=== PATIENT | male | born 1995 | race Two or more races ===

== ENCOUNTER 2016-08-02 15:10 | Emergency (ER) | payer OTHER ==
[~2016-08-02] VITALS: Ht 177.8 cm; Wt 79.3 kg
[~2016-08-02 15:10] MED LIST: CEFTIN250 MG PO; NASONEX17 GM BOTH NARES
[2016-08-02] MEDS ORDERED: CEPHALEXIN500 MG PO (15:37)
[2016-08-02] MEDS ORDERED: BACTRIM,SEPT1 TABLET PO (15:49)
[2016-08-02] MEDS ORDERED: KEFLEX500 MG PO (15:49)
[2016-08-02 16:08] VITALS: BP 132/67
== END 2016-08-02 16:09 | disposition home or self-care (01) ==
LOC: EME 15:10
DX: L08.9 Local infection of the skin and subcutaneous tissue, unspecified (principal); T36.1X6A Underdosing of cephalosporins and other beta-lactam antibiotics, initial encounter; Z91.128 Patient's intentional underdosing of medication regimen for other reason
CPT/HCPCS: 99281; 99284

== ENCOUNTER 2017-07-09 15:16 | Inpatient (IN) | payer OTHER ==
[~2017-07-09] VITALS: Ht 200.7 cm; Wt 72.8 kg
[~2017-07-09 15:16] MED LIST changes: +BACTRIM,SEPT1 TABLET PO; +CEPHALEXIN500 MG PO; +KEFLEX500 MG PO
[2017-07-09 21:13] LABS: INTER. NORMALIZED RATIO 1.4
[2017-07-09 21:20] LABS: ALBUMIN 4.3 g/dL (3.2-4.8)
[2017-07-09 21:21] LABS: CHLORIDE 105 mEq/L (99-109); POTASSIUM 4.3 mEq/L (3.7-5.4); SODIUM 141 mEq/L (136-147)
[2017-07-09 21:22] LABS: AMYLASE 137 IU/L (1-118)
[2017-07-09 21:23] LABS: GLUCOSE 73 mg/dL (70-99); TOTAL PROTEIN 8.3 g/dL (6.4-8.3)
[2017-07-09 21:24] LABS: HEMATOCRIT 35.9 % (38.0-50.0); MCH 18.9 PG (29.0-34.0); MCHC 33.4 G/DL (30.0-36.0); MCV 56.5 FL (86-99); PLATELET COUNT 251 K/uL (156-360); RBC DIS.WIDTH-CV 19.9 % (11.8-14.6); RBC DIS.WIDTH-SD 33.7 % (39-53); RED BLOOD COUNT 6.35 M/uL (4.00-5.50); WHITE BLOOD COUNT 5.7 K/uL (4.1-10.2)
[2017-07-09 21:25] LABS: TOTAL BILIRUBIN 13.6 mg/dL (0.0-1.0)
[2017-07-09 21:26] LABS: ALKALINE PHOSPHATASE 145 IU/L (3-129)
[2017-07-09 21:27] LABS: CREATININE 1.1 mg/dL (0.6-1.3); GFR ESTIMATE (CALCULATED) > 59 mL/min/ (58.99-99999)
[2017-07-09 21:28] LABS: UREA NITROGEN (BUN) 11 mg/dL (9-23)
[2017-07-09 21:30] LABS: CREATINE KINASE 49 IU/L (1-294); LIPASE 51 U/L (1.0-51.0); TOTAL CK 49 IU/L (1-294)
[2017-07-09 21:36] LABS: CK-MB 0.8 ng/mL (0.0-4.9); CKMB RELATIVE INDEX 1.6 (0.0-3.9)
[2017-07-09 21:42] LABS: ALT (GPT) 1510 IU/L (3-49); AST (GOT) 1928 IU/L (2-34)
[2017-07-09 22:14] LABS: APPEARANCE CLEAR ((CLEAR)); BILIRUBIN NEGATIVE; BLOOD NEGATIVE; COLOR AMBER ((YELLOW)); GLUCOSE (STRIP) NEGATIVE; KETONES NEGATIVE; LEUKOCYTES NEGATIVE; NITRITE NEGATIVE; PROTEIN (STRIP) NEGATIVE; SPECIFIC GRAVITY 1.043 (1.000-1.030)
[2017-07-09 22:48] LABS: DIRECT BILIRUBIN 9.5 mg/dL (0.0-0.3)
[2017-07-09] MEDS ORDERED: ZOFRAN4 MG PO (22:50)
[2017-07-09] MEDS ORDERED: ERGOCALCIF50000 UNIT PO (22:50)
[2017-07-09] MEDS ORDERED: PRILOSEC OTC20 MG PO (22:51)
[2017-07-09] MEDS ORDERED: PEPCID AC10 MG PO (22:51)
[2017-07-09 23:13] LABS: ACETAMINOPHEN (TYLENOL) < 10 mcg/mL (10-30); SALICYLATE < 5.0 MG/DL (15-30)
[2017-07-10 01:53] VITALS: BP 131/81
[2017-07-10 03:33] VITALS: BP 126/76
[2017-07-10 05:42] LABS: HEMOGLOBIN 9.9 G/DL (12.5-16.6); MCH 18.7 PG (29.0-34.0); MCV 56.7 FL (86-99); PLATELET COUNT 200 K/uL (156-360); RBC DIS.WIDTH-CV 18.7 % (11.8-14.6); RBC DIS.WIDTH-SD 34.5 % (39-53); RED BLOOD COUNT 5.29 M/uL (4.00-5.50); WHITE BLOOD COUNT 4.9 K/uL (4.1-10.2)
[2017-07-10 08:07] VITALS: BP 110/71
[2017-07-10 08:40] LABS: ALBUMIN 3.5 G/DL (3.2-4.8); ALKALINE PHOSPHATASE 100 IU/L (3-129); ALT (GPT) 978 IU/L (3-49); AMYLASE 81 IU/L (1-118); AST (GOT) 1217 IU/L (2-34); CHLORIDE 103 MEQ/L (99-109); GFR ESTIMATE (CALCULATED) > 59 mL/min/ (58.99-99999); GLUCOSE 107 mg/dL (70-99); LIPASE 72 U/L (1.0-51.0); POTASSIUM 3.6 MEQ/L (3.7-5.4); SODIUM 139 MEQ/L (136-147); TOTAL BILIRUBIN 11.9 MG/DL (0.0-1.0); TOTAL PROTEIN 6.2 G/DL (6.4-8.3); UREA NITROGEN (BUN) 9 mg/dL (9-23)
[2017-07-10 10:50] LABS: HEPATITIS C ANTIBODY Nonreactive
[2017-07-10 11:06] VITALS: BP 119/77
[2017-07-10 11:29] LABS: INTER. NORMALIZED RATIO 1.5
[2017-07-10 12:11] LABS: IRON 280 MCG/DL (35-150); TRANSFERRIN (TIBC) 193.8 mg/dL (215-380)
[2017-07-10 12:12] LABS: TRANSFERRIN SATUR. 144 % (20-55)
[2017-07-10 12:21] LABS: FERRITIN > 1500 NG/ML (22-322)
[2017-07-10 14:51] LABS: HEPATITIS B SURFACE ANTIGEN Nonreactive
[2017-07-10 14:52] LABS: ANTI-HEPATITIS B CORE (IGM) Nonreactive
[2017-07-10 15:27] VITALS: BP 122/77
[2017-07-10 23:15] VITALS: BP 126/66
[2017-07-11 04:50] VITALS: BP 139/79
[2017-07-11 06:25] LABS: INTER. NORMALIZED RATIO 1.6
[2017-07-11 07:00] LABS: ALBUMIN 3.3 G/DL (3.2-4.8); ALKALINE PHOSPHATASE 103 IU/L (3-129); DIRECT BILIRUBIN 7.7 mg/dL (0.0-0.3); TOTAL BILIRUBIN 12.8 MG/DL (0.0-1.0); TOTAL PROTEIN 6.2 G/DL (6.4-8.3)
[2017-07-11 07:01] LABS: ALT (GPT) 1002 IU/L (3-49)
[2017-07-11 07:02] LABS: AST (GOT) 1292 IU/L (2-34)
[2017-07-11 08:02] VITALS: BP 108/68
[2017-07-11 10:53] LABS: HEMATOCRIT 32.2 % (38.0-50.0); HEMOGLOBIN 10.7 G/DL (12.5-16.6); MCH 18.8 PG (29.0-34.0); MCHC 33.2 G/DL (30.0-36.0); MCV 56.6 FL (86-99); PLATELET COUNT 224 K/uL (156-360); RBC DIS.WIDTH-CV 19.6 % (11.8-14.6); RBC DIS.WIDTH-SD 34.6 % (39-53); RED BLOOD COUNT 5.69 M/uL (4.00-5.50); WHITE BLOOD COUNT 4.4 K/uL (4.1-10.2)
[2017-07-11 16:00] VITALS: BP 116/72
[2017-07-11 19:37] LABS: ALPHA-1-ANTITRYPSIN+ 170 mg/dL (83-199)
[2017-07-12 04:58] LABS: BASOPHIL (%) 0 % (0-1); EOSINOPHIL (%) 0 % (0-5); HEMATOCRIT 31.6 % (38.0-50.0); HEMOGLOBIN 10.7 G/DL (12.5-16.6); IMMATURE GRANULOCYTE (%) 0.3 % (0.0-0.7); LYMPHOCYTE (%) 12.2 % (15-42); LYMPHOCYTE COUNT 0.8 K/uL (1.0-2.8); MCH 18.8 PG (29.0-34.0); MCHC 33.9 G/DL (30.0-36.0); MCV 55.6 FL (86-99); MONOCYTE (%) 1.8 % (3-12); MONOCYTE COUNT 0.1 K/uL (0-0.8); NEUTROPHIL (%) 85.7 % (45-76); NEUTROPHIL COUNT 5.9 K/uL (1.8-6.4); PLATELET COUNT 228 K/uL (156-360); RBC DIS.WIDTH-CV 19.5 % (11.8-14.6); RBC DIS.WIDTH-SD 33.6 % (39-53); RED BLOOD COUNT 5.68 M/uL (4.00-5.50); WHITE BLOOD COUNT 6.8 K/uL (4.1-10.2)
[2017-07-12 04:59] LABS: ALBUMIN 3.6 g/dL (3.2-4.8); INTER. NORMALIZED RATIO 1.7
[2017-07-12 05:00] LABS: CHLORIDE 105 mEq/L (99-109); POTASSIUM 4.2 mEq/L (3.7-5.4); SODIUM 137 mEq/L (136-147)
[2017-07-12 05:02] LABS: GLUCOSE 137 mg/dL (70-99)
[2017-07-12 05:04] LABS: TOTAL BILIRUBIN 11.6 mg/dL (0.0-1.0)
[2017-07-12 05:06] LABS: CREATININE 0.9 mg/dL (0.6-1.3); GFR ESTIMATE (CALCULATED) > 59 mL/min/ (58.99-99999)
[2017-07-12 05:07] LABS: UREA NITROGEN (BUN) 10 mg/dL (9-23)
[2017-07-12 05:16] LABS: ALKALINE PHOSPHATASE 106 IU/L (3-129); ALT (GPT) 1194 IU/L (3-49); AST (GOT) 1247 IU/L (2-34); TOTAL PROTEIN 6.7 g/dL (6.4-8.3)
[2017-07-12 06:01] LABS: ERTH.SED.RATE 5 MM/HR (0-15)
[2017-07-12 07:51] VITALS: BP 123/72
[2017-07-12 10:57] LABS: ANTI-HEPATITIS A VIRUS (IGM) Nonreactive
[2017-07-12 15:36] VITALS: BP 125/79
[2017-07-12] MEDS ORDERED: ONDANSETRON4 MG/2 ML IV (18:50)
[2017-07-12] MEDS ORDERED: OXYCODONE HCL5 MG PO (18:50)
[2017-07-12] MEDS ORDERED: SOLU-MEDRO125 MG/21 IV (18:51)
[2017-07-12] MEDS ORDERED: PROTONIX IV40 MG IV (18:51)
[2017-07-13 07:58] LABS: HCV RNA (IU/mL) <15 IU/mL (<15)
[2017-07-13 08:29] LABS: HCV RNA (LOG IU/mL) <1.18 (<1.18)
[2017-07-13 18:11] LABS: MITOCHONDRIAL (M2) ANTIBODIES+ <=20.0 U (<=20.0)
== END 2017-07-12 21:21 | disposition short-term general hospital (02) | DRG 441 ==
LOC: EME 15:16 → EDOF 23:00 → 3EAST 23:00 → ENRESERV 23:24 → 3EAST 07-10 01:05
PROVIDERS: Internal Medicine; Internal Medicine Gastroenterology; Nurse Practitioner Family
DX: K72.00 Acute and subacute hepatic failure without coma (principal); K80.21 Calculus of gallbladder without cholecystitis with obstruction; K85.90 Acute pancreatitis without necrosis or infection, unspecified; K76.0 Fatty (change of) liver, not elsewhere classified; E87.6 Hypokalemia; R16.1 Splenomegaly, not elsewhere classified; D64.9 Anemia, unspecified; E55.9 Vitamin D deficiency, unspecified; I10 Essential (primary) hypertension; K21.9 Gastro-esophageal reflux disease without esophagitis; Z82.3 Family history of stroke; Z82.49 Family history of ischemic heart disease and other diseases of the circulatory system; Z83.3 Family history of diabetes mellitus
CPT/HCPCS: 36415; 74177; 74183; 76705; 80053; 80076; 81003; 82103 90; 82140; 82150; 82248; 82390; 82550; 82553; 82728; 83540; 83690; 84466; 85025; 85027; 85610; 85651; 86038; 86235; 86255 90; 86256 90; 86664; 86665; 86705; 86709; 86803; 87338; 87340; 87522 90; 99281; 99285; C9113; G0480; J2405; J2930; J7030

== ENCOUNTER 2017-08-21 08:50 | Emergency (ER) | payer OTHER ==
[~2017-08-21] VITALS: Ht 180.3 cm; Wt 72.4 kg
[~2017-08-21 08:50] MED LIST changes: +ERGOCALCIF50000 UNIT PO; +ONDANSETRON4 MG/2 ML IV; +OXYCODONE HCL5 MG PO; +PEPCID AC10 MG PO; +PRILOSEC OTC20 MG PO; +PROTONIX IV40 MG IV; +SOLU-MEDRO125 MG/21 IV; +ZOFRAN4 MG PO
[2017-08-21] MEDS ORDERED: KEFLEX500 MG PO (10:13)
[2017-08-21] MEDS ORDERED: BACTRIM,SEPT1 TABLET PO (10:13)
[2017-08-21 10:30] VITALS: BP 127/81
== END 2017-08-21 10:36 | disposition home or self-care (01) ==
LOC: EME 08:50
PROC: 0H98XZZ Drainage of Buttock Skin, External Approach (ICD-10-PCS; principal; 2017-08-21)
DX: L05.91 Pilonidal cyst without abscess (principal)
CPT/HCPCS: 87070; 87075; 87076; 87185; 87205; 99281; 99284

== ENCOUNTER 2017-08-22 14:50 | Emergency (ER) | payer OTHER ==
[~2017-08-22] VITALS: Ht 177.8 cm; Wt 72.0 kg
[2017-08-22 16:17] VITALS: BP 142/87
== END 2017-08-22 16:18 | disposition home or self-care (01) ==
LOC: EME 14:50
DX: L05.91 Pilonidal cyst without abscess (principal); Z48.01 Encounter for change or removal of surgical wound dressing
CPT/HCPCS: 99281; 99282

== ENCOUNTER 2017-08-23 13:45 | Emergency (ER) | payer OTHER ==
[~2017-08-23] VITALS: Ht 177.8 cm; Wt 72.7 kg
[2017-08-23 14:33] VITALS: BP 131/82
== END 2017-08-23 14:33 | disposition home or self-care (01) ==
LOC: EME 13:45
DX: Z48.01 Encounter for change or removal of surgical wound dressing (principal); L05.91 Pilonidal cyst without abscess
CPT/HCPCS: 99281; 99282

== ENCOUNTER 2017-08-26 18:49 | Inpatient (IN) | payer OTHER ==
[~2017-08-26] VITALS: Ht 180.3 cm; Wt 74.9 kg
[2017-08-26 19:28] LABS: ALBUMIN 3.9 g/dL (3.2-4.8)
[2017-08-26 19:29] LABS: CHLORIDE 105 mEq/L (99-109); SODIUM 140 mEq/L (136-147)
[2017-08-26 19:31] LABS: GLUCOSE 106 mg/dL (70-99); TOTAL PROTEIN 7.6 g/dL (6.4-8.3)
[2017-08-26 19:33] LABS: HEMATOCRIT 34.5 % (38.0-50.0); MCHC 31.9 G/DL (30.0-36.0); MCV 62.7 FL (86-99); NRBC (%) 0.7 /100 WBC (0-0); PLATELET COUNT 212 K/uL (156-360); RBC DIS.WIDTH-CV 20.9 % (11.8-14.6); RBC DIS.WIDTH-SD 43.1 % (39-53); TOTAL BILIRUBIN 2.9 mg/dL (0.0-1.0); WHITE BLOOD COUNT 7.5 K/uL (4.1-10.2)
[2017-08-26 19:34] LABS: ALKALINE PHOSPHATASE 106 IU/L (3-129)
[2017-08-26 19:35] LABS: CREATININE 0.8 mg/dL (0.6-1.3); GFR ESTIMATE (CALCULATED) > 59 mL/min/ (58.99-99999)
[2017-08-26 19:36] LABS: AST (GOT) 174 IU/L (2-34); UREA NITROGEN (BUN) 18 mg/dL (9-23)
[2017-08-26 19:38] LABS: ALT (GPT) 201 IU/L (3-49)
[2017-08-26 20:16] LABS: INTER. NORMALIZED RATIO 1.1
[2017-08-26 20:19] LABS: PTT 34.1 SEC (25-37)
[2017-08-26 20:24] LABS: LIPASE 142 U/L (1.0-51.0)
[2017-08-26 20:27] LABS: APPEARANCE CLEAR ((CLEAR)); BILIRUBIN NEGATIVE; BLOOD NEGATIVE; COLOR YELLOW ((YELLOW)); GLUCOSE (STRIP) NEGATIVE; KETONES NEGATIVE; LEUKOCYTES NEGATIVE; NITRITE NEGATIVE; PROTEIN (STRIP) NEGATIVE; SPECIFIC GRAVITY 1.019 (1.000-1.030); UCUL ADDED? NO; UROBILINOGEN 0.2 MG/DL (0.2-1.0)
[2017-08-26 21:01] LABS: AMYLASE 274 IU/L (1-118)
[2017-08-26 21:09] LABS: DIRECT BILIRUBIN 1.3 mg/dL (0.0-0.3)
[2017-08-26] MEDS ORDERED: CEPHALEXIN500 MG PO (22:31)
[2017-08-26] MEDS ORDERED: OMEPRAZOLE20 M2 PO (22:32)
[2017-08-26] MEDS ORDERED: PREDNISONE10 MG PO ×3 (22:32→22:34)
[2017-08-26] MEDS ORDERED: CICLOPIROX120 ML TP (22:34)
[2017-08-27 00:46] VITALS: BP 124/71
[2017-08-27 04:34] VITALS: BP 119/68
[2017-08-27 06:47] LABS: BASOPHIL (%) 0.2 % (0-1); EOSINOPHIL (%) 0.7 % (0-5); EOSINOPHIL COUNT 0.1 K/uL (0-0.3); HEMATOCRIT 28.3 % (38.0-50.0); IMMATURE GRANULOCYTE (%) 1.6 % (0.0-0.7); LYMPHOCYTE (%) 29.7 % (15-42); LYMPHOCYTE COUNT 2.5 K/uL (1.0-2.8); MCH 19.7 PG (29.0-34.0); MCHC 31.4 G/DL (30.0-36.0); MCV 62.6 FL (86-99); MONOCYTE (%) 7.7 % (3-12); MONOCYTE COUNT 0.7 K/uL (0-0.8); NEUTROPHIL (%) 60.1 % (45-76); NEUTROPHIL COUNT 5.1 K/uL (1.8-6.4); NRBC (%) 0.4 /100 WBC (0-0); RBC DIS.WIDTH-SD 42.8 % (39-53); RED BLOOD COUNT 4.52 M/uL (4.00-5.50); WHITE BLOOD COUNT 8.6 K/uL (4.1-10.2)
[2017-08-27 06:50] LABS: HEMOGLOBIN 8.9 G/DL (12.5-16.6)
[2017-08-27 07:01] LABS: ALBUMIN 3.1 G/DL (3.2-4.8); ALKALINE PHOSPHATASE 65 IU/L (3-129); ALT (GPT) 120 IU/L (3-49); AMYLASE 128 IU/L (1-118); AST (GOT) 100 IU/L (2-34); CHLORIDE 104 MEQ/L (99-109); CREATININE 0.7 MG/DL (0.6-1.3); GFR ESTIMATE (CALCULATED) > 59 mL/min/ (58.99-99999); GLUCOSE 159 mg/dL (70-99); LIPASE 104 U/L (1.0-51.0); POTASSIUM 3.4 MEQ/L (3.7-5.4); SODIUM 137 MEQ/L (136-147); UREA NITROGEN (BUN) 11 mg/dL (9-23)
[2017-08-27 07:02] LABS: TOTAL BILIRUBIN 1.9 MG/DL (0.0-1.0); TOTAL PROTEIN 5.5 G/DL (6.4-8.3)
[2017-08-27 07:20] VITALS: BP 124/78
[2017-08-27 08:01] LABS: PLAT.SUFFICIENCY ADEQUATE; PLATELET COUNT 164 K/uL (156-360)
[2017-08-27 12:59] LABS: TRIGLYCERIDES 50 MG/DL (Normal: <150)
[2017-08-27 20:31] VITALS: BP 125/62
[2017-08-28 00:13] VITALS: BP 112/58
[2017-08-28 04:35] VITALS: BP 119/61
[2017-08-28 07:06] LABS: ALKALINE PHOSPHATASE 60 IU/L (3-129); ALT (GPT) 114 IU/L (3-49); AMYLASE 118 IU/L (1-118); AST (GOT) 90 IU/L (2-34); CHLORIDE 108 MEQ/L (99-109); CREATININE 0.8 MG/DL (0.6-1.3); GFR ESTIMATE (CALCULATED) > 59 mL/min/ (58.99-99999); LIPASE 74 U/L (1.0-51.0); POTASSIUM 3.6 MEQ/L (3.7-5.4); SODIUM 141 MEQ/L (136-147); TOTAL BILIRUBIN 2.1 MG/DL (0.0-1.0); TOTAL PROTEIN 5.4 G/DL (6.4-8.3); UREA NITROGEN (BUN) 10 mg/dL (9-23)
[2017-08-28 07:09] LABS: GLUCOSE 92 mg/dL (70-99)
[2017-08-28 07:28] VITALS: BP 113/69
[2017-08-28 15:04] VITALS: BP 117/72
[2017-08-28] MEDS ORDERED: AMOX TR-K CLV1 EAC4 PO (16:21)
[2017-08-28] MEDS ORDERED: BENTYL20 MG PO (16:21)
[2017-08-28] MEDS ORDERED: SUCRALFATE1 GM PO (16:21)
== END 2017-08-28 17:26 | disposition home or self-care (01) | DRG 391 ==
LOC: EME 18:49 → EDOF 22:50 → 2EAST 22:50 → ENRESERV 23:20 → 2EAST 08-27 00:15
PROVIDERS: Internal Medicine; Physician Assistant
DX: K29.00 Acute gastritis without bleeding (principal); T38.0X5A Adverse effect of glucocorticoids and synthetic analogues, initial encounter; K72.00 Acute and subacute hepatic failure without coma; K75.4 Autoimmune hepatitis; D50.9 Iron deficiency anemia, unspecified; E87.6 Hypokalemia; R74.8 Abnormal levels of other serum enzymes; E55.9 Vitamin D deficiency, unspecified; I10 Essential (primary) hypertension; K21.9 Gastro-esophageal reflux disease without esophagitis; F32.9 Major depressive disorder, single episode, unspecified; Z82.3 Family history of stroke; Z82.49 Family history of ischemic heart disease and other diseases of the circulatory system; Z83.3 Family history of diabetes mellitus
CPT/HCPCS: 36415; 74177; 76705; 80053; 80076; 81003; 82150; 82248; 83690; 84478; 85025; 85027; 85610; 85730; 87040; 99281; 99285; J0696; J7030; J7512

== ENCOUNTER 2017-10-18 21:17 | Emergency (ER) | payer OTHER ==
[~2017-10-18] VITALS: Ht 177.8 cm; Wt 73.5 kg
[~2017-10-18 21:17] MED LIST changes: +AMOX TR-K CLV1 EAC4 PO; +BENTYL20 MG PO; +CICLOPIROX120 ML TP; +OMEPRAZOLE20 M2 PO; +PREDNISONE10 MG PO; +SUCRALFATE1 GM PO
[2017-10-19 00:23] LABS: HEMATOCRIT 38.6 % (38.0-50.0); HEMOGLOBIN 12.3 G/DL (12.5-16.6); MCHC 31.9 G/DL (30.0-36.0); MCV 62.9 FL (86-99); PLATELET COUNT 293 K/uL (156-360); RBC DIS.WIDTH-CV 15.3 % (11.8-14.6); RBC DIS.WIDTH-SD 31.6 % (39-53); RED BLOOD COUNT 6.14 M/uL (4.00-5.50); WHITE BLOOD COUNT 8.1 K/uL (4.1-10.2)
[2017-10-19] MEDS ORDERED: PEPCID20 MG PO (01:20)
[2017-10-19 01:51] VITALS: BP 138/82
== END 2017-10-19 01:52 | disposition home or self-care (01) ==
LOC: EME 21:17
PROVIDERS: Emergency Medicine
DX: R10.13 Epigastric pain (principal); D64.9 Anemia, unspecified; I10 Essential (primary) hypertension; F32.9 Major depressive disorder, single episode, unspecified; K21.9 Gastro-esophageal reflux disease without esophagitis
CPT/HCPCS: 83690; 85027; 87338; 99281; 99284